=== PATIENT | male | born 1985 | race Caucasian/White ===

== ENCOUNTER 2019-10-16 15:32 | Inpatient (IN) | payer OTHER ==
[~2019-10-16] VITALS: Ht 172.7 cm; Wt 103.0 kg
[2019-10-16 15:39] VITALS: Ht 172.7 cm; Wt 103.0 kg
[2019-10-16 16:58] LABS: microscopic required? NO
[2019-10-16 17:04] LABS: BASOPHIL % 0.3 % (0-2); PLATELET COUNT 202 x10^3mcL (130-400); RED CELL DISTRIBUTION WIDTH 14.2 % (11.5-14.5)
[2019-10-16 17:22] LABS: UA SPECIFIC GRAVITY 1.015 (1.005-1.035); urine erythrocyte NEGATIVE (NEGATIVE)
[2019-10-16 17:24] LABS: ALBUMIN 3.7 g/dL (3.4-5.0); ALKALINE PHOSPHATASE 179 U/L (46-116); ALT/SGPT 121 U/L (16-63); AST/SGOT 73 U/L (15-37); BILIRUBIN TOTAL 0.86 mg/dL (0.20-1.00); C REACTIVE PROTEIN 1.1 mg/dL (<=0.9); CALCIUM 8.5 mg/dL (8.5-10.1); CARBON DIOXIDE 16.4 mmol/L (21-32); CHLORIDE SERUM 94 mmol/L (98-107); CREATININE SERUM 1.2 mg/dL (0.7-1.3); GFR1 > 60 mL/min; POTASSIUM SERUM 3.5 mmol/L (3.5-5.1); SODIUM SERUM 130 mmol/L (136-145); TOTAL PROTEIN, SERUM 7.4 g/dL (6.4-8.2)
[2019-10-16 17:26] LABS: T3 TOTAL 0.69 ng/mL
[2019-10-16 17:35] LABS: GLUCOSE SERUM 479 mg/dL (74-106)
[2019-10-16 17:40] LABS: AMPHETAMINE QUAL UR NONE DETECTED (See below)
[2019-10-16 17:44] LABS: FREE T4 1.21 ng/dL (0.76-1.46); FREE THYROXINE INDEX 2.2 ug/dL (1.4-4.5); T4(THYROXINE) 6.1 ug/dL (4.7-13.3)
[2019-10-16 17:48] LABS: ERYTHROCYTE SED RATE 12 mm/hr (0-15)
[2019-10-16 17:50] LABS: CK-MB 0.5 ng/mL (0-3.6)
[2019-10-16 20:03] LABS: CHOLESTEROL 235 mg/dL (<200); CHOLESTEROL/HDL RATIO 5.7; HDL CHOLESTEROL 41 mg/dL (40-60); TRIGLYCERIDES 412 mg/dL (<150)
[2019-10-16 20:43] LABS: CALCIUM 7.8 mg/dL (8.5-10.1); CARBON DIOXIDE 11.5 mmol/L (21-32); CHLORIDE SERUM 100 mmol/L (98-107); GFR1 > 60 mL/min; GLUCOSE SERUM 247 mg/dL (74-106); PHOSPHOROUS 2.2 mg/dL (2.5-4.9); POTASSIUM SERUM 3.5 mmol/L (3.5-5.1); SODIUM SERUM 136 mmol/L (136-145)
[2019-10-17 00:47] LABS: CALCIUM 7.4 mg/dL (8.5-10.1); CARBON DIOXIDE 18.9 mmol/L (21-32); CHLORIDE SERUM 103 mmol/L (98-107); CREATININE SERUM 0.9 mg/dL (0.7-1.3); GFR1 > 60 mL/min; GLUCOSE SERUM 194 mg/dL (74-106); MAGNESIUM 1.9 mg/dL (1.8-2.4); PHOSPHOROUS 2.2 mg/dL (2.5-4.9); POTASSIUM SERUM 3.5 mmol/L (3.5-5.1); SODIUM SERUM 136 mmol/L (136-145)
[2019-10-17 05:28] LABS: CALCIUM 7.4 mg/dL (8.5-10.1); CARBON DIOXIDE 22.4 mmol/L (21-32); CHLORIDE SERUM 102 mmol/L (98-107); CREATININE SERUM 0.9 mg/dL (0.7-1.3); GFR1 > 60 mL/min; GLUCOSE SERUM 213 mg/dL (74-106); MAGNESIUM 1.9 mg/dL (1.8-2.4); SODIUM SERUM 135 mmol/L (136-145)
[2019-10-17 05:32] LABS: POTASSIUM SERUM 2.5 mmol/L (3.5-5.1)
[2019-10-17 05:34] LABS: BASOPHIL % 0.5 % (0-2); PLATELET COUNT 186 x10^3mcL (130-400); RED CELL DISTRIBUTION WIDTH 14.5 % (11.5-14.5)
[2019-10-17 07:59] LABS: CALCIUM 7.4 mg/dL (8.5-10.1); CARBON DIOXIDE 19.5 mmol/L (21-32); CHLORIDE SERUM 103 mmol/L (98-107); CREATININE SERUM 0.8 mg/dL (0.7-1.3); GFR1 > 60 mL/min; GLUCOSE SERUM 154 mg/dL (74-106); MAGNESIUM 1.6 mg/dL (1.8-2.4); PHOSPHOROUS 1.9 mg/dL (2.5-4.9); POTASSIUM SERUM 3.1 mmol/L (3.5-5.1); SODIUM SERUM 138 mmol/L (136-145)
[2019-10-17 09:37] VITALS: BP 136/91
[2019-10-17 12:05] VITALS: BP 103/72
[2019-10-17 12:22] LABS: CALCIUM 8.2 mg/dL (8.5-10.1); CHLORIDE SERUM 101 mmol/L (98-107); CREATININE SERUM 0.7 mg/dL (0.7-1.3); GFR1 > 60 mL/min; GLUCOSE SERUM 222 mg/dL (74-106); MAGNESIUM 1.8 mg/dL (1.8-2.4); PHOSPHOROUS 2.3 mg/dL (2.5-4.9); SODIUM SERUM 135 mmol/L (136-145)
[2019-10-17 12:27] LABS: POTASSIUM SERUM 2.8 mmol/L (3.5-5.1)
[2019-10-17 16:00] VITALS: BP 11/71
[2019-10-17 16:27] LABS: CALCIUM 8.1 mg/dL (8.5-10.1); CARBON DIOXIDE 24.2 mmol/L (21-32); CHLORIDE SERUM 99 mmol/L (98-107); CREATININE SERUM 0.7 mg/dL (0.7-1.3); GFR1 > 60 mL/min; GLUCOSE SERUM 262 mg/dL (74-106); MAGNESIUM 1.8 mg/dL (1.8-2.4); PHOSPHOROUS 2.2 mg/dL (2.5-4.9); SODIUM SERUM 134 mmol/L (136-145)
[2019-10-18 05:54] VITALS: BP 122/79
[2019-10-18 06:37] LABS: PLATELET COUNT 174 x10^3mcL (130-400); RED CELL DISTRIBUTION WIDTH 13.6 % (11.5-14.5)
[2019-10-18 07:10] LABS: ALKALINE PHOSPHATASE 119 U/L (46-116); ALT/SGPT 139 U/L (16-63); AST/SGOT 80 U/L (15-37); BILIRUBIN TOTAL 0.89 mg/dL (0.20-1.00); CALCIUM 8.3 mg/dL (8.5-10.1); CARBON DIOXIDE 24.8 mmol/L (21-32); CHLORIDE SERUM 98 mmol/L (98-107); CREATININE SERUM 0.7 mg/dL (0.7-1.3); GFR1 > 60 mL/min; GLUCOSE SERUM 211 mg/dL (74-106); SODIUM SERUM 136 mmol/L (136-145); TOTAL PROTEIN, SERUM 6.4 g/dL (6.4-8.2)
[2019-10-18 07:11] LABS: ALBUMIN 3.2 g/dL (3.4-5.0)
[2019-10-18 07:13] LABS: POTASSIUM SERUM 2.7 mmol/L (3.5-5.1)
[2019-10-18 07:18] LABS: MAGNESIUM 1.8 mg/dL (1.8-2.4); PHOSPHOROUS 2.8 mg/dL (2.5-4.9)
[2019-10-18 08:11] VITALS: BP 108/84
[2019-10-18 11:55] VITALS: BP 122/71
[2019-10-18 12:15] LABS: SEGMENTED NEUTROPHILS 47 % (37-75)
[2019-10-18 12:16] LABS: BAND NEUTROPHIL 2 % (0-10); MONOCYTE 14 % (0-7)
[2019-10-18 12:17] LABS: rbc morphology (normal/abnorm) NORMAL (NORMAL)
[2019-10-18] MEDS ORDERED: LANTI SQ (14:18)
[2019-10-18] MEDS ORDERED: HUMULIN R100 U/1 M1 SQ (14:19)
[2019-10-18] MEDS ORDERED: BLOOD LANCETS1 EACH TOP (14:19)
[2019-10-18] MEDS ORDERED: EASY COMFORT ALCO70% TOP (14:20)
[2019-10-18] MEDS ORDERED: METER-CHECK1 EACH MC (14:21)
[2019-10-18] MEDS ORDERED: GLUCOSE TEST S1 EACH MC (14:22)
[2019-10-18] MEDS ORDERED: ATORVASTATIN CA20 M1 PO (14:23)
[2019-10-18 14:31] VITALS: BP 122/71
[2019-10-18 16:00] VITALS: BP 142/89
[2019-10-18 16:29] LABS: CALCIUM 8.2 mg/dL (8.5-10.1); CARBON DIOXIDE 25.3 mmol/L (21-32); CHLORIDE SERUM 99 mmol/L (98-107); CREATININE SERUM 0.7 mg/dL (0.7-1.3); GFR1 > 60 mL/min; GLUCOSE SERUM 209 mg/dL (74-106); POTASSIUM SERUM 3.3 mmol/L (3.5-5.1); SODIUM SERUM 137 mmol/L (136-145)
== END 2019-10-18 18:20 | disposition home or self-care (01) | DRG 420 ==
LOC: ED 15:32 → IC 18:26 → DU 10-17 21:47
PROVIDERS: Specialist; ADMIT Family Medicine; ATTEND Family Medicine
DX: E11.10 Type 2 diabetes mellitus with ketoacidosis without coma (principal); E87.1 Hypo-osmolality and hyponatremia; E86.0 Dehydration; E78.00 Pure hypercholesterolemia, unspecified; E78.5 Hyperlipidemia, unspecified; E78.1 Pure hyperglyceridemia; R74.0 Nonspecific elevation of levels of transaminase and lactic acid dehydrogenase [LDH]
CPT/HCPCS: 36600; 82962; 84439; G0378; G0480; J1815; J3480; J7030; Q0092